=== PATIENT | female | born 1995 | race Caucasian/White ===

== ENCOUNTER 2017-03-09 09:57 | Outpatient (CLI) | payer MEDICAID ==
--- NOTE | 2017-03-09 15:42 | ULT ---
OBSTETRICAL ULTRASOUND: 03/09/17. COMPARISON: None. HISTORY: A 21-year-old female undergoing evaluation for size and dates. TECHNIQUE: Multiplanar, angelo scale, sonographic imaging of the gravid uterus obtained. FINDINGS: Cervical length is approximately 4 cm. Placenta is located anteriorly demonstrating no evidence for previa or abruption. A single intrauterine gestation is present, demonstrating a heart rate in the 147 b.p.m. range. The fetus demonstrates a breech presentation. bladder and stomach appear unremarkable as does the region of the kidneys. intracr anial contents and face appear grossly unremarkable. Portions of the face are obscured. spine and umbilical cord insertion appear within normal limits. There is a 3-vessel cord demonstrated. Four-chamber heart view is suboptimal secondary to posi tion and motion. Biometry: BPD 5.1 cm, 21 weeks 4 days HC 19.9 cm, 22 weeks 1 day AC 16.3 cm, 21 weeks 3 days FL 3.7 cm, 21 weeks 6 days Average age based on ultrasound is 21 weeks 6 days. Estimated date of delivery is 07/14/17. Estimate d weight is 440 gm +/- 65 gm. Umbilical artery Doppler assessment performed demonstrating peak systolic velocity of 23 cm/s and end -diastolic velocity of 9 cm/s with a systolic/diastolic ratio if 2.6 and a resistive index of 0.6. IMPRESSION: Single intrauterine gestation as detailed above. Four-chamber heart view was suboptimal. POS: [facility]
== END 2017-03-09 09:58 | disposition home or self-care (01) ==
LOC: ULT 09:57
PROVIDERS: ATTEND Family Medicine
DX: Z34.82 Encounter for supervision of other normal pregnancy, second trimester (principal); Z3A.23 23 weeks gestation of pregnancy
CPT/HCPCS: 76805